=== PATIENT | female | born 1960 | race Caucasian/White ===

== ENCOUNTER 2022-05-23 09:33 | Outpatient (CLI) | payer MEDICARE, OTHER, SELFPAY ==
--- NOTE | 2022-05-23 09:38 | MM_ITS ---
WS: [id number] Bilateral screening 3D tomosynthesis digital mammogram, 05/23/2022 Clinical Data: SCREENING Comparison: 01/03/2021, 11/26/2018. Findings: The breast parenchymal pattern shows fibroglandular tissue. No spiculated masses or clustered calcifi cations are seen. There are no secondary signs of carcinoma. MM/[place] [id number] Impression: 1. Negative bilateral mammogram unchanged. 2. Recommend annual screening mammograms. BIRADS: 1-Negative FOLLOW UP: 1 Year Follow-up The CAD electric distribution checker was used.
== END 2022-05-23 09:34 | disposition home or self-care (01) ==
LOC: RAD 09:34
PROVIDERS: Family Provider Nurse Practitioner Family; PCP Registered Nurse; Visit Provider Registered Nurse
DX: Z12.31 Encounter for screening mammogram for malignant neoplasm of breast (principal)
CPT/HCPCS: 77063; 77067

== ENCOUNTER → 2023-04-24 14:12 | Outpatient (BNVA) | payer MEDICARE, OTHER, SELFPAY | PROVIDERS: Family Provider Nurse Practitioner Family; PCP Registered Nurse; Referring Provider Family Medicine; Visit Provider Dermatology | DX: L40.0 Psoriasis vulgaris (principal); L56.0 Drug phototoxic response; L57.8 Other skin changes due to chronic exposure to nonionizing radiation; L85.3 Xerosis cutis | CPT/HCPCS: 99204 ==

== ENCOUNTER → 2023-08-19 08:45 | Outpatient (BNVA) | payer MEDICARE, OTHER, SELFPAY | PROVIDERS: Family Provider Nurse Practitioner Family; PCP Registered Nurse; Visit Provider Nurse Practitioner Family | DX: L40.0 Psoriasis vulgaris (principal); L85.3 Xerosis cutis; L40.59 Other psoriatic arthropathy | CPT/HCPCS: 99214 ==

== ENCOUNTER 2023-08-27 14:38 | Outpatient (CLI) | payer MEDICARE, OTHER, SELFPAY ==
[2023-08-27 15:03] LABS: Basophils % 0.7 %; Eosinophils # 0.2 10^3/uL (0.0-0.8); Eosinophils % 3.9 %; Hematocrit 42.8 % (36-47); Lymphocytes # 0.8 10^3/uL (0.8-4.8); Lymphocytes % 15.1 %; Mean Corpuscular HGB Conc 33.4 g/dL (30-55); Mean Corpuscular Hemoglobin 30.2 pg (27-33); Mean Corpuscular Volume 90.3 fl (85-98); Mean Platelet Volume 9.4 fL (7.4-10.4); Monocytes # 0.5 10^3/uL (0.2-0.9); Monocytes % 8.5 %; Neutrophils % 71.6 %; Nucleated Red Blood Cells % 0 %; Platelet Count 219 10^3/cmm (157-399); Red Blood Count 4.74 10^6/uL (3.85-5.65); White Blood Count 5.44 10^3/uL (3.29-11.43)
[2023-08-27 15:14] LABS: Alanine Aminotransferase 13 U/L (0-33); Albumin Level 4.2 g/dL (3.5-5.2); Alkaline Phosphatase 119 U/L (35-105); Aspartate Amino Transferase 25 U/L (0-32); Blood Urea Nitrogen 17 mg/dL (8-23); Calcium 9.7 mg/dL (8.5-10.5); Carbon Dioxide 26 mmol/L (22-29); Chloride 104 mmol/L (98-107); Globulin 2.5 g/dL (1.3-4.6); Glucose 106 mg/dL (65-115); Lactate (Lactic Acid level) 0.9 mmol/L (0.5-2.2); Osmolality Calculated 290 mOsm/kg (285-295); Sodium 139 mmol/L (136-145); Total Bilirubin 0.8 mg/dL (0.15-1.2); Total Protein 6.7 g/dL (6.6-8.7)
== END 2023-08-27 14:39 | disposition home or self-care (01) ==
PROVIDERS: PCP Registered Nurse; Visit Provider Nurse Practitioner Family
DX: D72.12 Drug rash with eosinophilia and systemic symptoms syndrome (principal); L40.0 Psoriasis vulgaris; L40.59 Other psoriatic arthropathy; L85.3 Xerosis cutis
CPT/HCPCS: 36415; 80053; 83605; 85025; 99214

== ENCOUNTER → 2023-09-01 10:40 | Outpatient (BNVA) | payer MEDICARE, OTHER, SELFPAY | PROVIDERS: PCP Registered Nurse; Visit Provider Nurse Practitioner Family | DX: L40.0 Psoriasis vulgaris (principal); L85.3 Xerosis cutis; L40.59 Other psoriatic arthropathy; L27.0 Generalized skin eruption due to drugs and medicaments taken internally | CPT/HCPCS: 99213 ==

== ENCOUNTER → 2023-09-15 10:36 | Outpatient (BNVA) | payer MEDICARE, OTHER, SELFPAY | PROVIDERS: PCP Registered Nurse; Visit Provider Nurse Practitioner Family | DX: L27.0 Generalized skin eruption due to drugs and medicaments taken internally (principal); L40.0 Psoriasis vulgaris; L40.59 Other psoriatic arthropathy; L85.3 Xerosis cutis | CPT/HCPCS: 99213 ==

== ENCOUNTER → 2023-11-05 09:20 | Outpatient (BNVA) | payer MEDICARE, OTHER, SELFPAY | PROVIDERS: PCP Registered Nurse; Visit Provider Nurse Practitioner Family | DX: L40.0 Psoriasis vulgaris (principal); L40.59 Other psoriatic arthropathy; L57.8 Other skin changes due to chronic exposure to nonionizing radiation; D22.4 Melanocytic nevi of scalp and neck; L81.4 Other melanin hyperpigmentation | CPT/HCPCS: 99214 ==

== ENCOUNTER → 2023-11-26 14:16 | Outpatient (BNVA) | payer MEDICARE, OTHER, SELFPAY | PROVIDERS: PCP Registered Nurse; Visit Provider Nurse Practitioner Family | DX: L30.9 Dermatitis, unspecified (principal); L40.0 Psoriasis vulgaris; L40.59 Other psoriatic arthropathy | CPT/HCPCS: 11104; 99214 ==

== ENCOUNTER → 2023-12-08 10:37 | Outpatient (BNVA) | payer MEDICARE, OTHER, SELFPAY | PROVIDERS: PCP Registered Nurse; Visit Provider Nurse Practitioner Family | DX: L20.89 Other atopic dermatitis (principal); L40.0 Psoriasis vulgaris; Z48.02 Encounter for removal of sutures; L57.8 Other skin changes due to chronic exposure to nonionizing radiation; L81.4 Other melanin hyperpigmentation; L21.8 Other seborrheic dermatitis | CPT/HCPCS: 99214 ==

== ENCOUNTER → 2023-12-22 10:51 | Outpatient (BNVA) | payer MEDICARE, OTHER, SELFPAY | PROVIDERS: PCP Registered Nurse; Visit Provider Dermatology | DX: L40.0 Psoriasis vulgaris (principal) | CPT/HCPCS: 96372 ==

== ENCOUNTER → 2024-02-19 11:00 | Outpatient (BNVA) | payer MEDICARE, OTHER, SELFPAY | PROVIDERS: PCP Registered Nurse; Visit Provider Nurse Practitioner Family | DX: L23.9 Allergic contact dermatitis, unspecified cause (principal); L40.0 Psoriasis vulgaris | CPT/HCPCS: 99214 ==

== ENCOUNTER → 2024-02-23 11:10 | Outpatient (BNVA) | payer MEDICARE, OTHER, SELFPAY | PROVIDERS: PCP Registered Nurse; Visit Provider Nurse Practitioner Family | DX: L23.9 Allergic contact dermatitis, unspecified cause (principal) | CPT/HCPCS: 99214 ==

== ENCOUNTER → 2024-03-10 13:09 | Outpatient (BNVA) | payer MEDICARE, OTHER, SELFPAY | PROVIDERS: PCP Registered Nurse; Visit Provider Nurse Practitioner Family | DX: L27.0 Generalized skin eruption due to drugs and medicaments taken internally (principal) | CPT/HCPCS: 99212 ==

== ENCOUNTER → 2024-05-04 09:09 | Outpatient (BNVA) | payer MEDICARE, OTHER, SELFPAY | PROVIDERS: PCP Registered Nurse; Visit Provider Nurse Practitioner Family | DX: L40.0 Psoriasis vulgaris (principal); L24.2 Irritant contact dermatitis due to solvents | CPT/HCPCS: 99213 ==

== ENCOUNTER → 2024-05-25 15:24 | Outpatient (BNVA) | payer MEDICARE, OTHER, SELFPAY | PROVIDERS: PCP Registered Nurse; Visit Provider Dermatology | DX: L24.2 Irritant contact dermatitis due to solvents (principal); L40.0 Psoriasis vulgaris; Z79.899 Other long term (current) drug therapy | CPT/HCPCS: 11102; 99214 ==

== ENCOUNTER → 2024-07-29 13:00 | Outpatient (BNVA) | payer MEDICARE, OTHER, SELFPAY | PROVIDERS: PCP Registered Nurse; Visit Provider Dermatology | DX: L20.89 Other atopic dermatitis (principal); L29.89 Other pruritus | CPT/HCPCS: 99214 ==

== ENCOUNTER 2024-09-19 14:49 | Emergency (ER) | payer MEDICARE, OTHER, SELFPAY ==
[2024-09-19 14:55] VITALS: BP 150/83; PULSE 72; RESP 16; TEMP 36.4; O2SAT 99; BMI 19.6
--- NOTE | 2024-09-19 15:07 | ECG_ITS ---
[email or web address] [employer] Test Date: 2024-09-19 Pat Name: Pattie Jaimes Department: Room: Gender: Female Bracelet Former: : 1960 Requested By: Vaishali Goodman Order Number: [id number] Aryan MD: Juventino King M.D. Measurements Intervals [place] Rate: 84 P: 74 UT: 185 QRS: 74 QRSD: 89 T: 72 QT: 394 QTc: 468 Interpretive Statements SINUS RHYTHM POSSIBLE LEFT ATRIAL ENLARGEMENT [-0.1mV P-WAVE IN V1/V2] POSSIBLE RIGHT VENTRICULAR CONDUCTION DELAY [RSR (QR) IN V1/V2] No previous ECG available for comparison Electronically Signed On 09-19-2024 22:30:07 SOLAR INSTALLATION TECHNICIAN by Juventino King M.D. [email or web address]
--- NOTE | 2024-09-19 15:07 | CTR_ITS ---
PROCEDURE INFORMATION: Exam: CT Head Without Contrast Exam date and time: 09/19/2024 3:10 PM Age: 64 years old Clinical indication: Stroke-like symptoms; Speech disturbance; Additional info: Possible stroke around [id number] PT reports that she developed double vision while driving. Then shortly after the right side of her face became numb/ tingling. Headache. Reports that the tingling went away and then came back about an hr ago. 15mins ago developed RT sided arm weakness. Reports that she has been waking up with headaches for the past week. TECHNIQUE: Imaging protocol: Computed tomography of the head without contrast. Radiation optimization: All CT scans at this facility use at least one of these dose optimization techniques: automated exposure control; mA and/or kV adjustment per patient size (includes targeted exams where dose is matched to clinical indication); or iterative reconstruction. Other technique: STROKE PROTOCOL was implemented. COMPARISON: No relevant prior studies available. RADIATION DOSE METRICS: Total DLP (mGy-cm): 1052.9 FINDINGS: Brain: No acute intracranial hemorrhage. No confluent lobar infarct. No mass effect. Bilateral basal ganglia lacune versus prominent perivascular spaces. Cerebral ventricles: The ventricles and sulci are normal in size and shape for the patient's stated age. Paranasal sinuses: No fluid levels. Mastoid air cells: Visualized mastoid air cells are well aerated. Bones: No acute calvarial fracture. Soft tissues: Visualized soft tissues are unremarkable. CT/CT head wo con* [id number] IMPRESSION: No acute intracranial abnormality. If symptoms persist, consider further evaluation with MRI, if there are no contraindications to obtaining a MRI scan. ASSESSMENT: ASPECTS ([place] Stroke Program Early CT Score) is 10.
--- NOTE | 2024-09-19 15:07 | CTR_ITS ---
PROCEDURE INFORMATION: Exam: CTA Head With Contrast, Arteriography Exam date and time: 09/19/2024 3:10 PM Age: 64 years old Clinical indication: Pain; Speech disturbance; Headache; Prior surgery; Surgery date: 6+ months; Surgery type: Neck; Additional info: Possible stroke TECHNIQUE: Imaging protocol: Computed tomographic angiography of the head with contrast. Exam focused on the arteries. 3D rendering (Not supervised by radiologist): MIP and/or 3D reconstructed images were created by the technologist. Radiation optimization: All CT scans at this facility use at least one of these dose optimization techniques: automated exposure control; mA and/or kV adjustment per patient size (includes targeted exams where dose is matched to clinical indication); or iterative reconstruction. Contrast material: OMNI 350; Contrast volume: 85 ml; Contrast route: INTRAVENOUS (IV); COMPARISON: CT head wo con* [id number] 09/19/2024 3:10 PM RADIATION DOSE METRICS: Total DLP (mGy-cm): 340.1 FINDINGS: ANTERIOR CIRCULATION: Right internal carotid artery: Mild calcified plaque. No significant stenosis or aneurysm is seen involving the petrous, cavernous, or supraclinoid right internal caroid artery. Right middle cerebral artery: No occlusion or significant stenosis. No aneurysm. Right anterior cerebral artery: No occlusion or significant stenosis. No aneurysm. Left internal carotid artery: Mild calcified plaque. No significant stenosis is seen involving the petrous, cavernous, or supraclinoid left internal caroid artery. 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 Left middle cerebral artery: No occlusion or significant stenosis. No aneurysm. Left anterior cerebral artery: No occlusion or significant stenosis. No aneurysm. POSTERIOR CIRCULATION: Right vertebral artery: Diminutive appearing right intradural vertebral artery Left vertebral artery: Intradural left vertebral artery demonstrates no occlusion or significant stenosis. No aneurysm. Basilar artery: No occlusion or significant stenosis. No aneurysm. 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 Right posterior cerebral artery: No occlusion or significant stenosis. No aneurysm. Left posterior cerebral artery: No occlusion or significant stenosis. No aneurysm. origin of the left posterior cerebral artery. Veins: The left transverse sinus is not well seen and may be hypoplastic/diminutive in size. PROCEDURE INFORMATION: Exam: CTA Neck With Contrast Exam date and time: 09/19/2024 3:10 PM Age: 64 years old Clinical indication: Pain; Speech disturbance; Headache; Prior surgery; Surgery date: 6+ months; Surgery type: Neck; Additional info: Possible stroke TECHNIQUE: Imaging protocol: Computed tomographic angiography of the neck with contrast. Exam focused on the cervical segments of the vasculature. 3D rendering (Not supervised by radiologist): MIP and/or 3D reconstructed images were created by the technologist. Radiation optimization: All CT scans at this facility use at least one of these dose optimization techniques: automated exposure control; mA and/or kV adjustment per patient size (includes targeted exams where dose is matched to clinical indication); or iterative reconstruction. Contrast material: OMNI 350; Contrast volume: 85 ml; Contrast route: INTRAVENOUS (IV); COMPARISON: CT head wo con* [id number] 09/19/2024 3:10 PM RADIATION DOSE METRICS: Total DLP (mGy-cm): 340.1 FINDINGS: Right common carotid artery: No stenosis. No dissection or occlusion. Right internal carotid artery: Mild calcified plaque is seen involving the right carotid bulb and proximal right cervical internal carotid artery. No significant stenosis seen by NASCET criteria. No dissection or occlusion. Right external carotid artery: No occlusion or stenosis of the origin. Left common carotid artery: No stenosis. No dissection or occlusion. Left internal carotid artery: Mild calcified plaque is seen involving the left carotid bulb and proximal left cervical internal carotid artery. No significant stenosis seen by NASCET criteria. No dissection or occlusion. Left external carotid artery: No occlusion or stenosis of the origin. Right vertebral artery: No cervical vertebral artery stenosis. No dissection or occlusion. Left vertebral artery: No cervical vertebral artery stenosis. No dissection or occlusion. The left vertebral artery is the dominant vertebral artery. Soft tissues: Biapical lung scarring Bones/joints: Anterior hardware fixation with plate and screws spanning C5 and C6. CT/CT angio headneck* [id number] IMPRESSION: 1. No significant intracranial arterial stenosis or occlusion. 2. 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 3. The left transverse sinus is not well seen and may be hypoplastic/diminutive in size. Recommend comparison to prior studies if available. IMPRESSION: No significant cervical arterial stenosis or occlusion. REFERENCES: NASCET CRITERIA. The degree of stenosis in the cervical segment of the internal carotid artery is based on NASCET criteria. Normal is no stenosis. Mild is less than 50% stenosis. Moderate is 50-69% stenosis. Severe is 70% to 99% stenosis. Total occlusion is no detectable patent lumen.
--- NOTE | 2024-09-19 15:08 | ED_ITS ---
HPI - Headache 2 General: Chief Complaint: Headache Stated Complaint: Tingling on rt side of face, double vision Time Seen by Provider: 09/19/24 15:07 History of Present Illness: 64-year-old female history of neuropathy who presents emergency room with neurologic symptoms. She said earlier in the day before [facility] at about 9:30 AM she had double vision while she was driving. She had to pulley worker and let someone else drive. They went had went to [facility] and those symptoms resolved. However over the days she has had some numbness and tingling in her right arm and her right face. She says she feels like her right arm is a little bit weaker. She does not have any drift on exam. No visual field deficits. No slurred speech. No facial droop. Related Data Allergies Allergy/AdvReac Type Severity Reaction Status Date / Time Unable to Assess Allergy Unverified 09/19/24 15:10 Review of Systems 2 Narrative: Constitutional symptoms: Negative except as documented in HPI. Skin symptoms: Negative except as documented in HPI. Eye symptoms: Negative except as documented in HPI. ENMT symptoms: Negative except as documented in HPI. Respiratory symptoms: Negative except as documented in HPI. Cardiovascular symptoms: Negative except as documented in HPI. Gastrointestinal symptoms: Negative except as documented in HPI. Genitourinary symptoms: Negative except as documented in HPI. Musculoskeletal symptoms: Negative except as documented in HPI. Neurologic symptoms: Negative except as documented in HPI. Psychiatric symptoms: Negative except as documented in HPI. Endocrine symptoms: Negative except as documented in HPI. Physical Exam 2 Narrative: EXAM NARRATIVE: General: Alert, no acute distress. Skin: Warm, dry. Head: Normocephalic, atraumatic. Neck: Supple, trachea midline. Eye: Extraocular movements are intact. Ears, nose, mouth and throat: mucosa moist. Cardiovascular: Regular, Normal peripheral perfusion. Respiratory: Lungs are clear to auscultation, respirations are non-labored, breath sounds are equal, Symmetrical chest wall expansion. Gastrointestinal: Soft, Nontender, Non distended Musculoskeletal: Normal ROM, no deformity. Neurological: Alert and oriented, No focal neurological deficit observed. Psychiatric: Cooperative, appropriate mood & affect. Course 2 Vital Signs: Vital signs: Vital Signs Temperature 97.5 F L 09/19/24 14:55 Pulse Rate 72 09/19/24 14:55 Respiratory Rate 16 09/19/24 14:55 Blood Pressure 150/83 09/19/24 14:55 Pulse Oximetry 99 09/19/24 14:55 Oxygen Delivery Me thod Room Air 09/19/24 14:55 MDM - Headache Medical Decision Making Medical decision making: Differential diagnosis for patient with focal neurologic deficit(s) includes but not limited to and based on the above HPI, review of systems and physical exam: ischemic stroke, hemorrhagic stroke and embolic stroke secondary to atrial fibrillation), TIA, Pandey's palsey, metabolic encephalopathy with previous stroke. Orders placed to evaluate differential diagnosis based on the above differential, HPI and physical exam NIH Stroke Scale/Score (NIHSS) from [facility] on 09/19/2024 All calculations should be rechecked by clinician prior to use RESULT SUMMARY: 0 points NIH Stroke Scale INPUTS: 1A: Level of consciousness ?> 0 = Alert; keenly responsive 1B: Ask month and age ?> 0 = Both questions right 1C: 'Blink eyes' & 'squeeze hands' ?> 0 = Performs both tasks 2: Horizontal extraocular movements ?> 0 = Normal 3: Visual dyson ?> 0 = No visual loss 4: Facial palsy ?> 0 = Normal symmetry 5A: Left arm motor drift ?> 0 = No drift for 10 seconds 5B: Right arm motor drift ?> 0 = No drift for 10 seconds 6A: Left leg motor drift ?> 0 = No drift for 5 seconds 6B: Right leg motor drift ?> 0 = No drift for 5 seconds 7: Limb Ataxia ?> 0 = No ataxia 8: Sensation ?> 0 = Normal; no sensory loss 9: Language/aphasia ?> 0 = Normal; no aphasia 10: Dysarthria ?> 0 = Normal 11: Extinction/inattention ?> 0 = No abnormality CT head: No acute intracranial process. no intracranial hemorrhage, no evidence of infarct. no evidence of acute fracture.This was reviewed and interpreted by myself the ER physician. CTA of the head and neck: No obvious stenosis or occlusions are identified. No mass. This was reviewed and interpreted by myself the emergency room physician. I also reviewed the radiology report. EKG: Time 1521. Rate 84. Normal sinus rhythm, No ST-T changes, no ectopy, normal ND & QRS intervals, This was reviewed and interpreted by myself the ER physician at 1525. Lab Review: Laboratory results were reviewed and interpreted by myself the emergency room physician. Lab work is unremarkable. No leukocytosis. No anemia. No renal failure. Coags are normal. Urinalysis is negative. I reviewed the patient's medical record. Reexamination: Patient remained stable. No increased work of breathing. No altered mental status. No focal motor deficits. Patient says symptoms have almost completely resolved. The distribution of the tingling in her face does not fit stroke as it was both upper and lower face. She was out of the window for tPA anyway and shows no occlusions on the CTA. Assessment and plan: Vision changes Paresthesia Headache ? Recommend she take full-strength aspirin and follow-up with her neurologist in the next few days. - Discharged home - Discussed plan with patient. Answered any questions. - Evaluation and treatment of this problem were appropriate in the emergency setting. Lab Data 09/19/24 15:07 09/19/24 15:[address] 09/19/24 15:07 IMPRESSION: No acute intracranial abnormality. If symptoms persist, consider further evaluation with MRI, if there are no contraindications to obtaining a MRI scan. ASSESSMENT: ASPECTS ([place] Stroke Program Early CT Score) is 10. ADDENDUM: 09/19/24 1529 ADDENDUM: THIS REPORT CONTAINS FINDINGS THAT MAY BE CRITICAL TO PATIENT CARE. The findings were verbally communicated via telephone conference with VAISHALI HERNANDEZ at 3:27 PM SUPPORT ASSISTANT on 09/19/2024. The findings were acknowledged and understood. Head/Neck CTA 09/19/24 15:07 IMPRESSION: 1. No significant intracranial arterial stenosis or occlusion. 2. 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 3. The left transverse sinus is not well seen and may be hypoplastic/diminutive in size. Recommend comparison to prior studies if available. IMPRESSION: No significant cervical arterial stenosis or occlusion. REFERENCES: NASCET CRITERIA. The degree of stenosis in the cervical segment of the internal carotid artery is based on NASCET criteria. Normal is no stenosis. Mild is less than 50% stenosis. Moderate is 50-69% stenosis. Severe is 70% to 99% stenosis. Total occlusion is no detectable patent lumen. Laboratory Results WBC 6.63 10^3/uL (3.29-11.43) 09/19/24 15:07 RBC 4.77 10^6/uL (3.85-5.65) 09/19/24 15:07 Hgb 13.80 g/dL (11.27-16.99) 09/19/24 15:07 Hct 41.7 % (36-47) 09/19/24 15:07 MCV 87.4 fl (85-98) 09/19/24 15:07 MCH 28.9 pg (27-33) 09/19/24 15:07 MCHC 33.1 g/dL (30-55) 09/19/24 15:07 RDW 12.6 % (12.1-15.1) 09/19/24 15:07 Plt Count 233 10^3/cmm (157-399) 09/19/24 15:07 MPV 9.0 fL (7.4-10.4) 09/19/24 15:07 Neut % (Auto) 41.9 % 09/19/24 15:07 Lymph % (Auto) 48.4 % 09/19/24 15:07 Walker % (Auto) 6.6 % 09/19/24 15:07 Eos % (Auto) 1.8 % 09/19/24 15:07 Baso % (Auto) 1.1 % 09/19/24 15:07 Neut # (Auto) 2.78 10^3/uL (1.8-7.7) 09/19/24 15:07 Lymph # (Auto) 3.2 10^3/uL (0.8-4.8) 09/19/24 15:07 Walker # (Auto) 0.4 10^3/uL (0.2-0.9) 09/19/24 15:07 Eos # (Auto) 0.1 10^3/uL (0.0-0.8) 09/19/24 15:07 Baso # (Auto) 0.1 10^3/uL (0.0-0.1) 09/19/24 15:07 Nucleated RBC % (auto) 0 % 09/19/24 15:07 Nucleated RBCs # 0.0 /100WBC 09/19/24 15:07 PT 13.00 SECONDS (12.1-14.9) 09/19/24 15:07 INR 0.96 (0.8-1.2) 09/19/24 15:07 APTT 28.1 SECONDS (23.9-36.7) 09/19/24 15:07 Sodium 139 mmol/L (136-145) 09/19/24 15:07 Potassium 4.2 mmol/L (3.5-5.1) 09/19/24 15:07 Chloride 105 mmol/L (98-107) 09/19/24 15:07 Carbon Dioxide 25 mmol/L (22-29) 09/19/24 15:07 Anion Gap 13.2 (5-19) 09/19/24 15:07 BUN 13 mg/dL (8-23) 09/19/24 15:07 Creatinine 0.7 mg/dL (0.5-0.9) 09/19/24 15:07 GFR Calculation 83.7 mL/min (90-130) L 09/19/24 15:07 Glucose 93 mg/dL (65-115) 09/19/24 15:07 POC Glucose 85 mg/dL (70-110) 09/19/24 15:03 Calculated Osmolality 288 mOsm/kg (285-295) 09/19/24 15:07 Calcium 9.3 mg/dL (8.5-10.5) 09/19/24 15:07 Total Bilirubin 0.4 mg/dL (0.15-1.2) 09/19/24 15:07 AST 28 U/L (0-32) 09/19/24 15:07 ALT 13 U/L (0-33) 09/19/24 15:07 Alkaline Phosphatase 114 U/L (35-105) H 09/19/24 15:07 Total Protein 6.5 g/dL (6.6-8.7) L 09/19/24 15:07 Albumin 4.1 g/dL (3.5-5.2) 09/19/24 15:07 Globulin 2.4 g/dL (1.3-4.6) 09/19/24 15:07 Urine Color Yellow (Yellow) 09/19/24 15:45 Urine Appearance Clear (CLEAR) 09/19/24 15:45 Urine pH 5.5 (5-7) 09/19/24 15:45 Ur Specific [place] 1.019 (1.005-1.030) 09/19/24 15:45 Urine Protein Negative (Negative) 09/19/24 15:45 Urine Glucose (UA) Negative (Normal) 09/19/24 15:45 Urine Ketones Negative (Negative) 09/19/24 15:45 Urine Blood Negative (Negative) 09/19/24 15:45 Urine Nitrate Negative (Negative) 09/19/24 15:45 Urine Bilirubin Negative (Negative) 09/19/24 15:45 Urine Urobilinogen 0.2 mg/dL (Negative) 09/19/24 15:45 Ur Leukocyte Esterase Negative (Negative) 09/19/24 15:45 Urine RBC 0-2 /hpf (0-2) 09/19/24 15:45 Urine WBC 0-5 /hpf (0-5) 09/19/24 15:45 Ur Squamous Epith Cells 0-5 /hpf (0-5) 09/19/24 15:45 Amorphous Sediment Not Reportable 09/19/24 15:45 Urine Bacteria None seen /hpf (NONE) 09/19/24 15:45 Hyaline Casts 0-4 /lpf H 09/19/24 15:45 All radiology interpretation(s) finalized by discharge Discharge Plan Discharge Patient Disposition: Home Clinical Impression: Headache, Paresthesia Condition: Stable Discharge Orders: Discharge ED (Routine); Ordered 09/19/24 Ordered By: Vaishali Hernandez Referrals: Jaymie Borrego [Primary Care Provider] - Discharge Diet: Usual diet Discharge Activity: Increase activity as tolerated and Limit activity as instructed Patient Instructions: Acute Headache (ED), Paresthesia (ED), Opioid Safety, Pain Management Activity Restrictions/Additional Instructions: Please take a full-strength aspirin daily. Follow-up with your neurologist and your primary care as soon as possible. Thank you for choosing [facility] for your healthcare needs today. Please realize this is an emergency room and that we are providing you with a medical screening exam and this may not be complete and all inclusive of all the testing and or work up that you may need to determine your ailment or severity of your illness. You have been screened and evaluated and felt safe for discharge. Health conditions do change or evolve sometimes and as such it is important that you follow up with your Primary Doctor to be re checked, 3-5 days is a general good time frame for follow up. You are always welcome to return to the ED for re assessment if your symptoms are worsening or you have new concerns Coding Level of Care Code ED Injection Machine Operator for Alberto Frey
[2024-09-19 15:14] LABS: Glucose Point of Care 85 mg/dL (70-110)
[2024-09-19 15:15] LABS: Basophils # 0.1 10^3/uL (0.0-0.1); Basophils % 1.1 %; Eosinophils # 0.1 10^3/uL (0.0-0.8); Eosinophils % 1.8 %; Hematocrit 41.7 % (36-47); Lymphocytes # 3.2 10^3/uL (0.8-4.8); Lymphocytes % 48.4 %; Mean Corpuscular HGB Conc 33.1 g/dL (30-55); Mean Corpuscular Hemoglobin 28.9 pg (27-33); Mean Corpuscular Volume 87.4 fl (85-98); Monocytes # 0.4 10^3/uL (0.2-0.9); Monocytes % 6.6 %; Neutrophils # 2.78 10^3/uL (1.8-7.7); Neutrophils % 41.9 %; Nucleated Red Blood Cells % 0 %; Platelet Count 233 10^3/cmm (157-399); Red Blood Count 4.77 10^6/uL (3.85-5.65); Red Cell Distribution Width 12.6 % (12.1-15.1); White Blood Count 6.63 10^3/uL (3.29-11.43)
[2024-09-19] MEDS: iohexol 350 mg/mL 500 mL Btl (per mL) IV (15:21)
[2024-09-19 15:27] LABS: INR 0.96 (0.8-1.2)
[2024-09-19 15:28] LABS: Partial Thromboplastin Time 28.1 SECONDS (23.9-36.7)
[2024-09-19 15:32] LABS: Alanine Aminotransferase 13 U/L (0-33); Albumin Level 4.1 g/dL (3.5-5.2); Alkaline Phosphatase 114 U/L (35-105); Anion Gap 13.2 (5-19); Aspartate Amino Transferase 28 U/L (0-32); Blood Urea Nitrogen 13 mg/dL (8-23); Calcium 9.3 mg/dL (8.5-10.5); Carbon Dioxide 25 mmol/L (22-29); Chloride 105 mmol/L (98-107); Creatinine Clr Calc Pharmacy 60.7265; Globulin 2.4 g/dL (1.3-4.6); Glomerular Filtration Rate 83.7 mL/min (90-130); Glucose 93 mg/dL (65-115); Osmolality Calculated 288 mOsm/kg (285-295); Potassium 4.2 mmol/L (3.5-5.1); Sodium 139 mmol/L (136-145); Total Bilirubin 0.4 mg/dL (0.15-1.2); Total Protein 6.5 g/dL (6.6-8.7)
[2024-09-19 15:33] VITALS: BP 141/86; PULSE 81; O2SAT 100
[2024-09-19 15:51] LABS: Bilirubin Urine Negative (Negative); Blood Urine Negative (Negative); Glucose Urine UA Negative (Normal); Ketones Urine Negative (Negative); Leukocyte Esterase Urine Negative (Negative); Nitrate Urine Negative (Negative); Protein Urine Negative (Negative); Specific Gravity, Urine 1.019 (1.005-1.030); Urine Appearance Clear (CLEAR); Urine Color Yellow (Yellow); Urobilinogen Urine 0.2 mg/dL (Negative); pH Urine 5.5 (5-7)
[2024-09-19 15:56] LABS: Bacteria Urine None Seen /hpf; Hyaline Casts Urine 0-4 /lpf; RBC Urine 0-2 /hpf (0-2); Squamous Epithelial Cell Urine 0-5 /hpf (0-5); WBC Urine 0-5 /hpf (0-5)
[2024-09-19 16:33] VITALS: BP 143/87; PULSE 76; O2SAT 100
[2024-09-19] MEDS: aspirin 81 mg Chew Tablet 324 MG PO (17:24)
[2024-09-19 17:31] VITALS: BP 148/85; PULSE 82; O2SAT 98
[2024-09-19 17:32] VITALS: BP 148/85; PULSE 68; O2SAT 99
== END 2024-09-19 17:33 | disposition home or self-care (01) ==
PROVIDERS: Emergency Provider Emergency Medicine; PCP Registered Nurse
DX: R51.9 Headache, unspecified (principal); R20.2 Paresthesia of skin
CPT/HCPCS: 36416; 70450; 70496; 70498; 80053; 81001; 82962; 85025; 85610; 85730; 93005; 99285

== ENCOUNTER → 2024-10-12 13:11 | Outpatient (BNVA) | payer MEDICARE, OTHER, SELFPAY | PROVIDERS: PCP Registered Nurse; Visit Provider Dermatology | DX: L27.0 Generalized skin eruption due to drugs and medicaments taken internally (principal); L20.89 Other atopic dermatitis; L29.89 Other pruritus | CPT/HCPCS: 99214 ==

== ENCOUNTER → 2024-11-15 11:03 | Outpatient (BNVA) | payer MEDICARE, OTHER, SELFPAY | PROVIDERS: PCP Registered Nurse; Visit Provider Dermatology | DX: L30.9 Dermatitis, unspecified (principal); L29.89 Other pruritus; Z79.899 Other long term (current) drug therapy | CPT/HCPCS: 99214 ==

== ENCOUNTER → 2024-12-21 12:46 | Outpatient (BNVA) | payer MEDICARE, OTHER, SELFPAY | PROVIDERS: PCP Registered Nurse; Visit Provider Dermatology | DX: L20.89 Other atopic dermatitis (principal); L29.89 Other pruritus; D22.9 Melanocytic nevi, unspecified; Z79.899 Other long term (current) drug therapy | CPT/HCPCS: 99214 ==

== ENCOUNTER → 2025-03-01 14:07 | Outpatient (BNVA) | payer MEDICARE, OTHER, SELFPAY | PROVIDERS: PCP Registered Nurse; Visit Provider Dermatology | DX: L20.89 Other atopic dermatitis (principal); L29.89 Other pruritus; Z79.899 Other long term (current) drug therapy | CPT/HCPCS: 99214 ==

== ENCOUNTER → 2025-03-07 15:58 | Outpatient (BNVA) | payer MEDICARE, OTHER, SELFPAY | PROVIDERS: PCP Registered Nurse; Visit Provider Nurse Practitioner Women's Health | DX: Z12.4 Encounter for screening for malignant neoplasm of cervix (principal) | CPT/HCPCS: 87624 ==

== ENCOUNTER → 2025-03-16 12:31 | Outpatient (BNVA) | payer MEDICARE, OTHER, SELFPAY | PROVIDERS: PCP Registered Nurse; Visit Provider Nurse Practitioner Women's Health | DX: R10.2 Pelvic and perineal pain (principal); R10.32 Left lower quadrant pain; Z78.0 Asymptomatic menopausal state | CPT/HCPCS: 76830 ==

== ENCOUNTER → 2025-04-18 10:34 | Outpatient (BNVA) | payer MEDICARE, OTHER, SELFPAY | PROVIDERS: PCP Registered Nurse; Visit Provider Dermatology | DX: L23.9 Allergic contact dermatitis, unspecified cause (principal); L20.89 Other atopic dermatitis; L29.89 Other pruritus; Z79.899 Other long term (current) drug therapy | CPT/HCPCS: 99214 ==

== ENCOUNTER → 2025-05-11 10:06 | Outpatient (BNVA) | payer MEDICARE, OTHER, SELFPAY | PROVIDERS: PCP Registered Nurse; Visit Provider Dermatology | DX: L23.9 Allergic contact dermatitis, unspecified cause (principal); L20.89 Other atopic dermatitis; L29.89 Other pruritus | CPT/HCPCS: 99214 ==

== ENCOUNTER 2025-06-17 12:56 | Outpatient (CLI) | payer MEDICARE, OTHER, SELFPAY ==
--- NOTE | 2025-06-17 13:30 | US_ITS ---
WS: [id number] US transvaginal [id number] HISTORY: N84.0 - Polyp of corpus uteri COMPARISON: 03/16/2025 Uterus: 5.8 cm x 4.1 cm x 3.0 cm. Normal size anteverted uterus. No fibroid or mass. Endometrium: 0.4 cm. Small amount of fluid within the endometrial canal. Several small hyperechoic endometrial nodules are identified. Towards the fundus of the uterus a broad-based endometrial nodule measures 3.0 mm. There is a 3.7 mm nodule with calcification in the mid endometrium. Both of these nodules were described on 03/16/2025 and do not appear to have changed. Right ovary: 2.3 cm x 1.3 cm x 1.8 cm. Normal size and vascularity, no cystic or solid masses. Left ovary: 1.1 cm x 1.2 cm x 0.7 cm. Normal size and vascularity, no cystic or solid masses. No free fluid in the cul-de-sac. US/US transvaginal [id number] IMPRESSION: 1. Broad-based endometrial foci x2 are reidentified without change since 2024. These may be endometrial polyps. 1 of these polyps contains a calcificati on. If there is any vaginal bleeding hysteroscopy and biopsy recommended. These are broad-based polyps. Recommend close continued transvaginal imaging follow- up. 2. No fibroid.
== END 2025-06-17 12:57 | disposition home or self-care (01) ==
LOC: RAD 12:58
PROVIDERS: Visit Provider Obstetrics & Gynecology
DX: N84.0 Polyp of corpus uteri (principal); D26.1 Other benign neoplasm of corpus uteri
CPT/HCPCS: 76830

== ENCOUNTER → 2025-09-12 12:10 | Outpatient (BNVA) | payer MEDICARE, OTHER, SELFPAY | PROVIDERS: PCP Registered Nurse; Visit Provider Dermatology | DX: L20.89 Other atopic dermatitis (principal); L29.89 Other pruritus; L23.9 Allergic contact dermatitis, unspecified cause | CPT/HCPCS: 95044; 99214 ==

== ENCOUNTER → 2025-09-14 11:46 | Outpatient (BNVA) | payer MEDICARE, OTHER, SELFPAY | PROVIDERS: PCP Registered Nurse; Visit Provider Dermatology | DX: L23.9 Allergic contact dermatitis, unspecified cause (principal) | CPT/HCPCS: 99213 ==